=== PATIENT | male | born 1950 | race Caucasian/White ===

== ENCOUNTER → 2019-11-30 | Outpatient (CLI) | payer MEDICARE, BC ==
[~2019-11-30] MED LIST: CRESTOR40 MG PO; GABA-585 PO; LISI10TA2 PO; METO50TA29 PO; RIVA10TA PO
== END | disposition home or self-care (01) ==
LOC: LAB 08:57
PROVIDERS: ATTEND Nurse Anesthetist, Certified Registered
DX: Z01.818 Encounter for other preprocedural examination (principal); Z11.59 Encounter for screening for other viral diseases; Z86.010 Personal history of colon polyps
CPT/HCPCS: 36415; U0003

== ENCOUNTER → 2019-12-04 | Day surgery (SDC) | payer MEDICARE, BC ==
[~2019-12-04] MED LIST changes: +IPRATRPIUM/ALBUTEROL 0.5/2.5MG 3 ML NEBU. NEB PRN; +MIDAZOLAM HCL PF 2 MG/2 ML VIAL. IV ONE; +ONDANSETRON PF 4 MG/2 ML VIAL. IV PRN; +PROPOFOL 10,000 MCG/ML (20ML) VIAL IV ONE
[2019-12-04] MEDS: IV RINGERS SOLUTION,LACTATED 1,000 ML IV SCH (09:48)
[2019-12-04 11:36] VITALS: BP 134/82
--- NOTE | 2019-12-07 18:11 | PATHOLOGY ---
[facility] Accession Number: [id number] . 01 Material submitted: . colon - SIGMOID POLYP. Modifiers: sigmoid . 01 Clinical history: . None provided. . 02 Diagnosis: Colon biopsy, sigmoid polyp: - Hyperplastic polyp. ([facility] ER:patrick; 12/07/2019) [facility] 12/07/2019 1331 Local . 02 Comment: There are no adenomatous changes or evidence of malignancy. 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 02 Electronically signed: . Gio Marino MD, Pathologist NPI- [id number] . 01 Gross description: . Received in formalin labeled "Fritz Huber, sigmoid polyp" is a 0.3 x 0.2 x 0.1 cm fragment of dillon-brown soft tissue. The specimen is submitted entirely in A1. ([facility]; 12/06/2019) [facility] 12/06/2019 1002 Local . 02 Pathologist provided ICD-10: K63.5 . 02 CPT . 945364 Specimen Comment: A courtesy copy of this report has been sent to [phone], [phone] Specimen Comment: [id number] Specimen Comment: Report sent to / DR GRULLON Performed at: 01 [facility] [address], [place] [id number] MD Tera Tavear MD Phone: [phone] Performed at: 02 [facility] [address] [place], [place] [id number] MD Gio Marino MD Phone: [phone]
== END | disposition home or self-care (01) ==
LOC: SURG 09:26
PROVIDERS: ATTEND Internal Medicine Gastroenterology
DX: Z09 Encounter for follow-up examination after completed treatment for conditions other than malignant neoplasm (principal); K63.5 Polyp of colon; K63.89 Other specified diseases of intestine; K64.0 First degree hemorrhoids; K57.30 Diverticulosis of large intestine without perforation or abscess without bleeding; I10 Essential (primary) hypertension; E78.00 Pure hypercholesterolemia, unspecified; M10.9 Gout, unspecified; E55.9 Vitamin D deficiency, unspecified; I35.0 Nonrheumatic aortic (valve) stenosis; Z79.899 Other long term (current) drug therapy; Z88.8 Allergy status to other drugs, medicaments and biological substances; Z86.010 Personal history of colon polyps
CPT/HCPCS: 45380; 88305; J2704; J7120

== ENCOUNTER → 2020-10-06 | Outpatient (CLI) | payer MEDICARE, BC ==
[2019-12-04 11:36] VITALS: BP 134/82
[~2020-10-06] MED LIST changes: -IPRATRPIUM/ALBUTEROL 0.5/2.5MG 3 ML NEBU. NEB PRN; +LISI10TA16 PO; -LISI10TA2 PO; -MIDAZOLAM HCL PF 2 MG/2 ML VIAL. IV ONE; -ONDANSETRON PF 4 MG/2 ML VIAL. IV PRN; -PROPOFOL 10,000 MCG/ML (20ML) VIAL IV ONE
--- NOTE | 2020-10-06 10:51 | RAD ---
EXAM: Chest, 2 views. HISTORY: Cough. COMPARISON: None. FINDINGS: 2 views of the chest are obtained. There is coarse diffuse increased interstitial opacity. There is no consolidation, pleural fusion or pneumothorax. The heart is normal in size. IMPRESSION: Coarse diffuse increased interstitial opacity likely due to chronic interstitial changes. No consolidated infiltrate is seen. Electronically signed by: January Aguirre MD (10/06/2020 10:48 AM) [id number]
== END ==
LOC: RAD 10:33
PROVIDERS: ATTEND Specialist
DX: R05 Cough (principal); Z87.01 Personal history of pneumonia (recurrent)
CPT/HCPCS: 71046

== ENCOUNTER → 2021-03-17 | Outpatient (CLI) | payer MEDICARE, BC ==
[2019-12-04 11:36] VITALS: BP 134/82
--- NOTE | 2021-03-17 15:15 | RAD ---
XR KNEE 3 VIEWS_RT 03/17/2021 Reason: RIGHT KNEE PAIN Comparison: None Technique: 3 views of the right knee Findings: Is no acute fracture or dislocation. No knee joint effusion. Bone mineralization is within normal sam its. Calcifications in the posterior soft tissues likely vascular. Mild joint space narrowing at the tibiofemoral compartments. Impression: Mild change of osteoarthritis. Electronically signed by: Avinash Reyes (03/17/2021 3:13 PM) [id number]
== END ==
LOC: RAD 09:33
PROVIDERS: ATTEND Physician Assistant
DX: M17.11 Unilateral primary osteoarthritis, right knee (principal); M25.861 Other specified joint disorders, right knee
CPT/HCPCS: 73562